=== PATIENT | male | born 1990 | race Caucasian/White ===

== ENCOUNTER 2020-09-06 22:38 | Emergency (ER) | payer SELFPAY ==
[~2020-09-06] VITALS: Ht 170.2 cm; Wt 69.4 kg
[2020-09-06 22:50] VITALS: BP_SYST 129
--- NOTE | 2020-09-06 22:55 | NUR ---
PT TO BED 7 FOR EVALUATION. REPORT TO MIRANDA ASIF WHO WILL ASSUME CARE.
--- NOTE | 2020-09-06 22:58 | NUR ---
Placed in room 7 s/p blunt head injury trauma caused by a fall. Pt verbalized "no" to loss of conciousness, but stated he felt very dizzy. Placed on cardiac cath rn, blood pressure machine and pulse oximeter. To gown for exam. Side rails up.seen by ED MD.
[2020-09-06] MEDS ORDERED: KETOROLAC TROMETHAMINE 60 MG/2 ML VIAL IM ONE (23:15)
[2020-09-06] MEDS ORDERED: LIDOCAINE 1%, 20 ML MDV 20 ML ONE (23:22)
[2020-09-06] MEDS ORDERED: LIDOCAINE 1% 10 MG/ML, 20 ML MDV INJ ONE (23:30)
--- NOTE | 2020-09-07 00:15 | NUR ---
Patient given written and verbal discharge instructions and verbalizes understanding. ER MD discussed with patient the results and treatment provided. Patient in stable condition. ID arm band removed. Patient educated on pain management and to follow up with EDMD, Pt has no PCP. Pain Scale 1/10. Opportunity for questions provided and answered. Able to ambulate w/ steady gait. Pt w/ facial discomfort, pain level 1/10. No resp or generalized distress noted.
[2020-09-07 01:35] VITALS: BP_SYST 135
--- NOTE | 2020-09-07 01:36 | NUR ---
Pt left the ED, ambulating w/ steady gait.
== END 2020-09-07 01:35 | disposition home or self-care (01) ==
LOC: SED 22:38
DX: S01.21XA Laceration without foreign body of nose, initial encounter (principal); V00.131A Fall from skateboard, initial encounter; Y93.51 Activity, roller skating (inline) and skateboarding; Y92.89 Other specified places as the place of occurrence of the external cause; Y99.8 Other external cause status
CPT/HCPCS: 12011; 70160; 96372; 99283; J1885; J2001